=== PATIENT | female | born 1975 | race Caucasian/White ===

== ENCOUNTER 2025-06-13 13:10 | Outpatient (CLI) | payer BC | END 2025-06-13 13:11 | disposition home or self-care (01) | LOC: SCSMRI 13:10 | PROVIDERS: ATTEND Orthopaedic Surgery | DX: M23.92 Unspecified internal derangement of left knee (principal); R93.7 Abnormal findings on diagnostic imaging of other parts of musculoskeletal system; Z98.890 Other specified postprocedural states ==

== ENCOUNTER 2025-10-11 18:59 | Emergency (ER) | payer BC, OTHER | END 2025-10-11 20:02 | disposition home or self-care (01) | LOC: ERS 18:59 | DX: M79.605 Pain in left leg (principal); I10 Essential (primary) hypertension ==